=== PATIENT | female | born 1995 | race Two or more races ===

== ENCOUNTER 2018-03-01 15:13 | Emergency (ER) | payer BC ==
[~2018-03-01] VITALS: Ht 162.6 cm; Wt 57.2 kg
[2018-03-01 15:28] VITALS: BP 124/77
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
[2018-03-01] MEDS ORDERED: Methocarbamol 500mg tab ORAL ONE (16:45)
[2018-03-01] MEDS ORDERED: Bacitracin Oint UD TOPIC ONE (16:45)
[2018-03-01] MEDS ORDERED: BACITRACIN-P28.35 GM TP (16:46)
[2018-03-01] MEDS ORDERED: ROBAXIN500 MG PO (16:46)
[2018-03-01] MEDS ORDERED: TYLENOL EXTRA500 MG ORAL (16:46)
[2018-03-01 18:59] VITALS: BP 124/77
== END 2018-03-01 17:30 | disposition home or self-care (01) ==
LOC: EDBD 15:13 → EMR 17:01
DX: S16.1XXA Strain of muscle, fascia and tendon at neck level, initial encounter (principal); S60.413A Abrasion of left middle finger, initial encounter; S60.412A Abrasion of right middle finger, initial encounter; S00.83XA Contusion of other part of head, initial encounter; V43.62XA Car passenger injured in collision with other type car in traffic accident, initial encounter; Y93.9 Activity, unspecified; Y92.410 Unspecified street and highway as the place of occurrence of the external cause; Z97.5 Presence of (intrauterine) contraceptive device
CPT/HCPCS: 70450; 99284